=== PATIENT | male | born 1990 | race Hispanic/Latino ===

== ENCOUNTER 2024-06-13 12:00 | Emergency (ER) | payer SELFPAY ==
[~2024-06-13] VITALS: Ht 180.3 cm; Wt 90.5 kg
[2024-06-13 12:00] VITALS: PULSE 73; RESP 16; TEMP 98.4
[2024-06-13 13:32] VITALS: BP 119/73; PULSE 61; RESP 20; TEMP 97.5; O2SAT 99
== END 2024-06-13 13:22 | disposition home or self-care (01) ==
LOC: FSED 12:04
DX: R60.9 Edema, unspecified (principal); F17.210 Nicotine dependence, cigarettes, uncomplicated
CPT/HCPCS: 71046; 80053; 83880; 84484; 85025; 85379; 93005; 99283